=== PATIENT | male | born 1985 | race Caucasian/White ===

== ENCOUNTER 2019-02-28 15:44 | Emergency (ER) | payer OTHER ==
[~2019-02-28] VITALS: Ht 188 cm; Wt 95.8 kg
--- NOTE | 2019-02-28 19:47 | REP ---
LUMBOSACRAL SPINE: Five views of the lumbosacral spine are performed. There is no compression fracture or malalignment with normal lumbar lordosis. A small Schmorl's node is seen at the superior endplate of L2. There is mild narrowing at the L5-S1 disc space and slight narrowing at L4-5. There is sclerosis at the facets at L5-S1. The posterior elements are intact. IMPRESSION: No fracture or dislocation. Electronically Signed by Domingo Lovell MD 03/01/2019 11:15 A
[2019-02-28] MEDS ORDERED: PRED20TA PO (21:09)
[2019-02-28] MEDS ORDERED: NAPR-837 PO (21:09)
[2019-02-28 21:17] VITALS: BP 118/65
== END 2019-02-28 21:23 | disposition home or self-care (01) ==
LOC: M ED 15:44
DX: S39.92XA Unspecified injury of lower back, initial encounter (principal); X50.0XXA Overexertion from strenuous movement or load, initial encounter; Y92.9 Unspecified place or not applicable; Y93.89 Activity, other specified; M51.17 Intervertebral disc disorders with radiculopathy, lumbosacral region; Y99.0 Civilian activity done for income or pay

== ENCOUNTER 2019-03-09 18:47 | Emergency (ER) | payer OTHER ==
[~2019-03-09] VITALS: Ht 188 cm; Wt 97.7 kg
[~2019-03-09 18:47] MED LIST: NAPR-837 PO; PRED20TA PO
[2019-03-09 19:40] VITALS: BP 120/70
== END 2019-03-09 19:41 | disposition home or self-care (01) ==
LOC: M ED 18:47
DX: M51.16 Intervertebral disc disorders with radiculopathy, lumbar region (principal)

== ENCOUNTER → 2021-07-11 | Outpatient (CLI) | payer SELFPAY | LOC: M PLALAB 15:48 | PROVIDERS: ATTEND Obstetrics & Gynecology | DX: Z13.79 Encounter for other screening for genetic and chromosomal anomalies (principal) ==